=== PATIENT | male | born 1930 | race Caucasian/White ===

== ENCOUNTER 2018-11-27 08:34 | Inpatient (IN) | payer OTHER ==
[~2018-11-27] VITALS: Ht 172.7 cm; Wt 87.2 kg
[2018-11-27 08:39] VITALS: Ht 172.7 cm; Wt 87.2 kg
[2018-11-27] MEDS ORDERED: GOOD SENSE ASPI81 M3 PO (10:01)
[2018-11-27] MEDS ORDERED: ATENOLOL25 MG PO (10:01)
[2018-11-27] MEDS ORDERED: D3-50001 TAB PO (10:02)
[2018-11-27] MEDS ORDERED: ALLEGRA ALLERG180 M1 PO (10:02)
[2018-11-27] MEDS ORDERED: LOSARTAN POTASS25 M1 PO (10:02)
[2018-11-27] MEDS ORDERED: VITAMIN D32000 I2 (10:02)
[2018-11-27] MEDS ORDERED: GLUCOSAMINE CHO1 CA3 (10:02)
[2018-11-27 10:04] LABS: ALKALINE PHOSPHATASE 84 U/L (46-116); ALT/SGPT 23 U/L (16-63); AST/SGOT 49 U/L (15-37); BILIRUBIN TOTAL 0.26 mg/dL (0.20-1.00); CALCIUM 8.2 mg/dL (8.5-10.1); CARBON DIOXIDE 27.9 mmol/L (21-32); CHLORIDE SERUM 101 mmol/L (98-107); CREATININE SERUM 1.8 mg/dL (0.7-1.3); GLUCOSE SERUM 129 mg/dL (74-106); LIPASE 97 IU/L (73-393); POTASSIUM SERUM 4.7 mmol/L (3.5-5.1); SODIUM SERUM 135 mmol/L (136-145)
[2018-11-27 10:13] LABS: TOTAL PROTEIN, SERUM 5.7 g/dL (6.4-8.2)
[2018-11-27 10:15] LABS: RED CELL DISTRIBUTION WIDTH 13.8 % (11.5-14.5)
[2018-11-27 10:28] LABS: PLATELET COUNT 403 x10^3mcL (130-400)
[2018-11-27 11:08] LABS: ATYPICAL LYMPH 2 %; BAND NEUTROPHIL 1 % (0-10); BASOPHIL 0 % (0-2); MONOCYTE 2 % (0-7); SEGMENTED NEUTROPHILS 91 % (37-75)
[2018-11-27 11:09] LABS: PLATELET MORPHOLOGY PLATELETS INCREASED; rbc morphology (normal/abnorm) ABNORMAL (NORMAL)
[2018-11-27 14:38] LABS: MAGNESIUM 2.4 mg/dL (1.8-2.4); PHOSPHOROUS 3.5 mg/dL (2.5-4.9)
[2018-11-27 14:45] LABS: T3 TOTAL 0.52 ng/mL
[2018-11-27 14:50] VITALS: BP 107/78
[2018-11-27 14:54] LABS: FREE T4 1.1 ng/dL (0.76-1.46)
[2018-11-27 14:55] LABS: T4(THYROXINE) 4.6 ug/dL (4.7-13.3)
[2018-11-27 17:17] VITALS: BP 102/47
[2018-11-27 18:21] LABS: UA SPECIFIC GRAVITY 1.025 (1.005-1.035); microscopic required? YES; urine erythrocyte TRACE (NEGATIVE)
[2018-11-27 21:55] VITALS: BP 124/41
[2018-11-28 06:13] VITALS: BP 108/63
[2018-11-28 07:23] LABS: BASOPHIL % 0.1 % (0-2); PLATELET COUNT 303 x10^3mcL (130-400)
[2018-11-28 07:50] LABS: CALCIUM 7.9 mg/dL (8.5-10.1); CARBON DIOXIDE 25.8 mmol/L (21-32); CHLORIDE SERUM 107 mmol/L (98-107); CREATININE SERUM 1.4 mg/dL (0.7-1.3); GLUCOSE SERUM 100 mg/dL (74-106); POTASSIUM SERUM 4.5 mmol/L (3.5-5.1); SODIUM SERUM 141 mmol/L (136-145)
[2018-11-28 10:04] VITALS: BP 113/41
[2018-11-28 13:54] VITALS: BP 133/47
[2018-11-28 20:35] VITALS: BP 123/53
[2018-11-29 05:17] VITALS: BP 135/55
[2018-11-29 06:48] LABS: CALCIUM 8.3 mg/dL (8.5-10.1); CARBON DIOXIDE 23.1 mmol/L (21-32); CHLORIDE SERUM 108 mmol/L (98-107); CREATININE SERUM 1.2 mg/dL (0.7-1.3); GLUCOSE SERUM 121 mg/dL (74-106); POTASSIUM SERUM 3.9 mmol/L (3.5-5.1); SODIUM SERUM 139 mmol/L (136-145)
[2018-11-29 07:31] LABS: BASOPHIL % 0.4 % (0-2); PLATELET COUNT 313 x10^3mcL (130-400); RED CELL DISTRIBUTION WIDTH 13.9 % (11.5-14.5)
[2018-11-29 09:51] VITALS: BP 121/52
[2018-11-29 12:35] VITALS: BP 101/63
[2018-11-29 17:20] VITALS: BP 128/50
[2018-11-29 21:08] VITALS: BP 122/57
[2018-11-30 05:35] VITALS: BP 123/61
[2018-11-30 06:19] LABS: BASOPHIL % 0.4 % (0-2); PLATELET COUNT 310 x10^3mcL (130-400); RED CELL DISTRIBUTION WIDTH 14.1 % (11.5-14.5)
[2018-11-30 06:20] LABS: CALCIUM 8.2 mg/dL (8.5-10.1); CARBON DIOXIDE 24.1 mmol/L (21-32); CHLORIDE SERUM 107 mmol/L (98-107); CREATININE SERUM 1.2 mg/dL (0.7-1.3); GLUCOSE SERUM 119 mg/dL (74-106); MAGNESIUM 1.8 mg/dL (1.8-2.4); POTASSIUM SERUM 3.8 mmol/L (3.5-5.1); SODIUM SERUM 137 mmol/L (136-145)
[2018-11-30 09:39] VITALS: BP 136/62
[2018-11-30] MEDS ORDERED: PROTONIX20 MG PO (11:56)
[2018-11-30 13:29] VITALS: BP 111/81
[2018-11-30 14:43] VITALS: BP 111/81
== END 2018-11-30 16:20 | DRG 377 ==
LOC: ED 08:34 → DU 12:56
PROVIDERS: Emergency Medicine; Internal Medicine; ADMIT Family Medicine
PROC: 0DB58ZX Excision of Esophagus, Via Natural or Artificial Opening Endoscopic, Diagnostic (ICD-10-PCS; principal; 2018-11-29 09:30)
PROC: 0DB68ZX Excision of Stomach, Via Natural or Artificial Opening Endoscopic, Diagnostic (ICD-10-PCS; 2018-11-29 09:30)
DX: K92.1 Melena (principal); N17.0 Acute kidney failure with tubular necrosis; E43 Unspecified severe protein-calorie malnutrition; E87.1 Hypo-osmolality and hyponatremia; D62 Acute posthemorrhagic anemia; K22.70 Barrett's esophagus without dysplasia; K26.9 Duodenal ulcer, unspecified as acute or chronic, without hemorrhage or perforation; E11.65 Type 2 diabetes mellitus with hyperglycemia; N45.1 Epididymitis; E86.0 Dehydration; H54.61 Unqualified visual loss, right eye, normal vision left eye; I10 Essential (primary) hypertension; J45.909 Unspecified asthma, uncomplicated; Z86.12 Personal history of poliomyelitis
CPT/HCPCS: 43235; 82962; 84439; C9113; J1200; J1610; J1956; J2250; J2310; J3010; J3490; J7030; Q0092

== ENCOUNTER 2019-09-18 08:38 | Inpatient (IN) | payer OTHER ==
[~2019-09-18] VITALS: Ht 172.7 cm; Wt 33.2 kg
[~2019-09-18 08:38] MED LIST: ALLEGRA ALLERG180 M1 PO; ATENOLOL25 MG PO; D3-50001 TAB PO; GLUCOSAMINE CHO1 CA3; GOOD SENSE ASPI81 M3 PO; LOSARTAN POTASS25 M1 PO; PROTONIX20 MG PO; VITAMIN D32000 I2
--- NOTE | 2019-09-18 08:42 | NUR ---
PT BIB RESCUE # 66/[facility] # 117 STRETCHER FROM [facility] FOR DECREASED BP,decreased appetite x 3 days.awaits er md evaluations/assesmments.aao person at this time.nad.
--- NOTE | 2019-09-18 08:46 | NUR ---
ER MD AT BEDSIDE FOR EVALUATIONS/assessments.aao to person at this time but answers some questions .awaitsc reevaluations,tanmay.
--- NOTE | 2019-09-18 08:55 | NUR ---
LAB PGHLEBOTOMIST AT BEDSIDE FOR BLOOD DRAW.AWAITS REEVALUATIONS.MONITORS ON.
--- NOTE | 2019-09-18 09:01 | NUR ---
TO CT TEST AREA VIA rikc jay nad.awaits reevaluations,test results.
--- NOTE | 2019-09-18 09:04 | NUR ---
PER EMS PERSONNEL EARLIER F.S./BLOOD STICK OF 135,ER MADE AWARE.
[2019-09-18] MEDS ORDERED: ASPIR 8181 MG (09:09)
[2019-09-18] MEDS ORDERED: DOK100 M3 (09:10)
[2019-09-18] MEDS ORDERED: LIPI20 (09:10)
[2019-09-18] MEDS ORDERED: LOSARTAN POTASS50 M1 (09:11)
[2019-09-18] MEDS ORDERED: ONDANSETRON4 M3 (09:12)
[2019-09-18] MEDS ORDERED: GOOD NEIGH1200 MG/15 (09:12)
--- NOTE | 2019-09-18 09:16 | NUR ---
PT BACK FROM CT TEST area,pcxr in progress bedside.pt tolerated procedures with no incidents.asleep.nad.awaits test results,reevaluations.monitors on.
[2019-09-18 09:26] LABS: PLATELET COUNT 436 x10^3mcL (130-400); RED CELL DISTRIBUTION WIDTH 15.6 % (11.5-14.5)
[2019-09-18 09:30] LABS: ALKALINE PHOSPHATASE 204 U/L (46-116); ALT/SGPT 30 U/L (16-63); AST/SGOT 46 U/L (15-37); BILIRUBIN TOTAL 0.41 mg/dL (0.20-1.00); CALCIUM 8.2 mg/dL (8.5-10.1); CARBON DIOXIDE 18.9 mmol/L (21-32); CHLORIDE SERUM 101 mmol/L (98-107); GLUCOSE SERUM 145 mg/dL (74-106); POTASSIUM SERUM 4.9 mmol/L (3.5-5.1); SODIUM SERUM 135 mmol/L (136-145)
[2019-09-18 09:43] LABS: ALBUMIN 1.7 g/dL (3.4-5.0); CREATININE SERUM 4.3 mg/dL (0.7-1.3); TOTAL PROTEIN, SERUM 5.8 g/dL (6.4-8.2)
[2019-09-18 09:47] LABS: BAND NEUTROPHIL 0 % (0-10); BASOPHIL 0 % (0-2); MONOCYTE 4 % (0-7); SEGMENTED NEUTROPHILS 93 % (37-75)
[2019-09-18 09:48] LABS: PLATELET MORPHOLOGY PLATELETS INCREASED; rbc morphology (normal/abnorm) ABNORMAL (NORMAL)
--- NOTE | 2019-09-18 09:48 | NUR ---
RESTING ASLEEP AT TIMES,VS shown.awaits er md reevaluations.pt tolerated procedures with no incidents.
--- NOTE | 2019-09-18 10:00 | NUR ---
indwelling allen catheter is inserted,urine specimen sent to lab.prt tolerated procedures with no incidents.awaits test results,er reevaluations.nad.monitors on.
[2019-09-18 10:46] LABS: UA SPECIFIC GRAVITY 1.025 (1.005-1.035); microscopic required? YES; urine erythrocyte 3+ (NEGATIVE)
--- NOTE | 2019-09-18 10:47 | NUR ---
ASLEEP AT TIMES,NAD.MONITORS on.awaits reevaluations.
--- NOTE | 2019-09-18 11:06 | NUR ---
AT ABOUT 1050 ADULT SON PATRICIA CALLED FROM [facility] FOR STATUS OF PT.pt gave me permission to talk to his son,then son wanted to talk with pt,portable phone is given.patricia states he has legal conservatorship on pt and also left his contact number with ada permission, [phone].
--- NOTE | 2019-09-18 12:22 | NUR ---
er at bedside for reevaluations.v.o. to continue on ns.awaits bed assignment,reevaluations.awake alert nad.
--- NOTE | 2019-09-18 12:33 | NUR ---
IVF OF NS # 4 LITER BAG WILL BE INFUSING ON TRANSPORT TO ICU.
--- NOTE | 2019-09-18 12:33 | NUR ---
PT ENDORSED TO/ACCEPTED BY [facility] LAW[facility].AWAITS TRANSPORT SERVICES,REEVALUATIONS.
--- NOTE | 2019-09-18 14:33 | NUR ---
1250: PT ARRIVED TO THE UNIT VIA STRETCHER FROM ER. PT IS AWAKE BUT CONFUSION, FOLLOWS COMMANDS. NOTED TO HAVE BRUISING ON BILATERAL ARMS. O2-3L NC. VITALS: 97.8, 81, 16, 78/38(56), 100%. INFORMED PHYSICIAN, OBTAIN NEW ORDERS. BILATERAL LUNGS ARE CLEAR AND DIMINISHED. DANIEL NOTED. URINE OUTPUT IS 100ML TEA COLOR WITH SEDIMENT NOTED. WILL CONTINUE TO MONITOR STATUS AND STABLIZE PATIENT.
--- NOTE | 2019-09-18 15:20 | NUR ---
CENTRAL LINE TIME OUT COMPLETED AT THIS TIME WITH DR. ABDUL, DR. MANSFIELD AND [employer] MARIO. ALL IN AGREEMENT. PT MEDICATED WITH ATIVAN 1MG IVP AND DILAUDID 1 MG IVP PRIOR. CONTINUES ON LEVO DRIP AT 18MCG/MIN. WILL CONT TO MONITOR
[2019-09-18 15:24] VITALS: BP 78/38
--- NOTE | 2019-09-18 16:05 | NUR ---
RIGHT IJ TL CVC INSERTION COMPLETED BY DR. ABDUL. PT TOLERATED PROCEDURE WELL, WILL CONTINUE TO MONITOR AND AWAIT OK TO USE LINE FOLLOWING XRAY.
--- NOTE | 2019-09-18 16:40 | NUR ---
PT WITH ONLY ONE PERIPHERIAL ACCESS DURING SCHEDULED VANCO DOSE AT 1500. PT HAS LEVO INFUSING DURING THAT TIME PT HYPOTENSIVE. RIJ CENTRAL LINE PLACED AND HAS NOW BEEN VERIFIED. PHARMACY CONTACTED TO CHANGE VANCO TIME TO 1800 MERREM IS DUE AT 1600. PRIMARY RN MADE AWARE.
[2019-09-18 17:02] LABS: CALCIUM 6.7 mg/dL (8.5-10.1); CARBON DIOXIDE 19.3 mmol/L (21-32); CHLORIDE SERUM 107 mmol/L (98-107); CREATININE SERUM 3.2 mg/dL (0.7-1.3); GLUCOSE SERUM 154 mg/dL (74-106); MAGNESIUM 1.8 mg/dL (1.8-2.4); PHOSPHOROUS 3.9 mg/dL (2.5-4.9); SODIUM SERUM 139 mmol/L (136-145)
[2019-09-18 17:13] LABS: PLATELET COUNT 409 x10^3mcL (130-400); RED CELL DISTRIBUTION WIDTH 15.5 % (11.5-14.5)
[2019-09-18 17:39] LABS: BAND NEUTROPHIL 2 % (0-10); MONOCYTE 7 % (0-7); SEGMENTED NEUTROPHILS 87 % (37-75)
[2019-09-18 17:42] LABS: PLATELET MORPHOLOGY FEW PLT CLUMPS SEEN; acanthocyte (spur cell) 2+; ovalocyte/elliptocyte 1+; rbc morphology (normal/abnorm) ABNORMAL (NORMAL)
[2019-09-18 20:00] VITALS: BP 105/45
[2019-09-18 23:10] VITALS: BP 105/45
[2019-09-19] VITALS: BP 91/44
[2019-09-19 04:00] VITALS: BP 101/47
[2019-09-19 05:14] LABS: CALCIUM 6.8 mg/dL (8.5-10.1); CARBON DIOXIDE 20.4 mmol/L (21-32); CHLORIDE SERUM 108 mmol/L (98-107); CREATININE SERUM 2.7 mg/dL (0.7-1.3); GLUCOSE SERUM 154 mg/dL (74-106); POTASSIUM SERUM 3.9 mmol/L (3.5-5.1); SODIUM SERUM 138 mmol/L (136-145)
[2019-09-19 05:16] LABS: MAGNESIUM 1.7 mg/dL (1.8-2.4)
[2019-09-19 05:22] LABS: BASOPHIL % 0.2 % (0-2); PLATELET COUNT 358 x10^3mcL (130-400)
[2019-09-19 05:37] LABS: rbc morphology (normal/abnorm) ABNORMAL (NORMAL)
[2019-09-19 08:00] VITALS: BP 93/41
--- NOTE | 2019-09-19 09:31 | NUR ---
LEVOPHED GTT TITRATED TO 14 MCG/MIN FROM 12 MCG/MIN FOR BP 88/38. WILL CONTINUE TO MONITOR.
--- NOTE | 2019-09-19 09:50 | NUR ---
0800 PT IS RESTING QUIETLY IN BED. NO ACUTE DISTRESS NOTED. NO PAIN STATED. PT IS ALERT AND ORIENTED TO ONLY PERSON. BILATERAL BREATH SOUNDS ARE CLEAR. O2 2LNC. BP IS CURRENTLY LOW, REQUIRING 10MCG/MIN OF LEVOPHED. NS@100ML/HR. DANIEL DRAINING TO THE BEDSIDE. WILL CONTINUE TO MONITOR.
--- NOTE | 2019-09-19 10:10 | NUR ---
DR. ABDUL, DR. BARAJAS, DR. HANLEY AT BEDSIDE. QUESTIONS ANSWERED, UPDATES PROVIDED. PLAN OF CARE FOR NOW IS TO TRANSFUSE BLOOD (CONSENT AQUIRED VIA SON OF PT VIA TELEPHONE) AND TO CONTINUE LAB MONITORING. WILL CARRY OUT BLOOD ADMINISTRATION.
--- NOTE | 2019-09-19 10:11 | NUR ---
DR. ABDUL IN UNIT AND SPOKE WITH PT'S SON RONA VIA TELEPHONE IN REGARDS TO NEED FOR BLOOD TRANSFUSION, RISK AND BENEFITS EXPLAINED. CONSENT OBTAINED AND WITNESSED BY MYSELF VIA TELEPHONE. DR. HANLEY ALSO IN UNIT AND STATED HE WOULD LIKE PT TO RECIEVE AN ADDITIONAL UNIT OF PRBC FOR A TOTAL OF 2 UNITS.
--- NOTE | 2019-09-19 10:24 | NUR ---
PATIENT'S SON JULIET TELEPHONED THE UNIT TO MAKE SURE THAT WE RECEIVED CONFIRMATION OF CONSENT FOR BLOOD TRANSFUSION. EXPLAINED TO PATIENT'S SON THAT WE DID RECEIVE CONFIRMATION AND WILL BE TRANSFUSING 2 UNITS PRBC'S. JULIET IN AGREEMENT OF PLAN. WILL ENDORSE TO PRIMARY RN.
--- NOTE | 2019-09-19 10:30 | NUR ---
1 UNIT PRBC'S CHECKED AT BEDSIDE WITH SECOND RN. PRE ADMIN VS: T 97.3, HR 78, BP 94/45, RR 21, XPO2 99% ON RA. WILL CONTINUE TO MONITOR.
[2019-09-19 12:00] VITALS: BP 95/45
--- NOTE | 2019-09-19 12:12 | NUR ---
ECHO PENDING. UNABLE TO OBTAIN IMAGES DUE TO PATIENTS CURRENT CONDITION. WILL TRY AGAIN ANOTHER TIME.
[2019-09-19 15:00] VITALS: BP 108/53
--- NOTE | 2019-09-19 16:45 | NUR ---
PATIENT WITH BRADYCARDIA IN 40'S. DR ABDUL MADE AWARE. HR AT THIS TIME 68.
--- NOTE | 2019-09-19 17:37 | NUR ---
PATIENT'S RICHI AND STEP DAUGHTER NILES ON UNIT TO VISIT WITH PATIENT. UPDATES PROVIDED BY NURSING.
--- NOTE | 2019-09-19 17:38 | NUR ---
GINO SHAPE HAND JUST CALLED AND SAID THAT THE PRIMARY CARE PHYSICIAN OF THE PT WANTS OUR DOCTOR TO CALL THE PT'S SON, RONA, AND DISCUSS HOSPICE CARE WITH HIM. WILL UPDATE DR. ABDUL.
--- NOTE | 2019-09-19 17:41 | NUR ---
DR. ABDUL MADE AWARE OF PREVIOUS NOTE VIA TELEPHONE.
[2019-09-19 20:00] VITALS: BP 101/56
[2019-09-20] VITALS (7 sets, daily range): BP systolic 97–143; BP diastolic 44–60
[2019-09-20 04:46] LABS: BASOPHIL % 0.1 % (0-2); PLATELET COUNT 240 x10^3mcL (130-400)
[2019-09-20 04:57] LABS: CALCIUM 7.1 mg/dL (8.5-10.1); CARBON DIOXIDE 21.3 mmol/L (21-32); CHLORIDE SERUM 111 mmol/L (98-107); CREATININE SERUM 2.1 mg/dL (0.7-1.3); GLUCOSE SERUM 106 mg/dL (74-106); MAGNESIUM 1.7 mg/dL (1.8-2.4); PHOSPHOROUS 2.7 mg/dL (2.5-4.9); POTASSIUM SERUM 3.6 mmol/L (3.5-5.1); SODIUM SERUM 142 mmol/L (136-145)
--- NOTE | 2019-09-20 07:42 | NUR ---
ELLEN RT AT BEDSIDE ADMINISTERING BREATHING TX.
--- NOTE | 2019-09-20 07:55 | NUR ---
PATIENT'S SON JULIET TELEPHONED THE UNIT ASKING TO SPEAK WITH DR ABDUL. EXPLAINED TO JULIET THAT DR ABDUL IS NOT ON THE UNIT AT THIS TIME. JULIET EXPLAINED TO ME THAT HE WILL ONLY BE AVAILABLE FOR APPROXIMATELY 5-[address] ABDUL NOTIFIED AND STATED HE WILL CALL HIM RIGHT BACK.
--- NOTE | 2019-09-20 12:20 | NUR ---
DR CARTY AT BEDSIDE TO ASSESS PATIENT. UPDATES PROVIDED BY NURSING. PATIENT STABLE TO TRANSFER TO FLOOR.
--- NOTE | 2019-09-20 12:33 | NUR ---
DR. CARTY AT BEDSIDE ASSESSING PT. NURSING UPDATES. NO NEW ORDERS AT THIS TIME.
--- NOTE | 2019-09-20 12:40 | NUR ---
DR SALVADOR AT BEDSIDE TO ASSESS PATIENT. UPDATES PROVIDED BY NURSING. DR SALVADOR PERFORMED A RECTAL EXAM. PATIENT TOLERATED WITH NO S/S OF DISTRESS NOTED. PER DR SALVADOR, NO EGD/COLONOSCOPY AT THIS TIME.
--- NOTE | 2019-09-20 14:06 | NUR ---
Initial Nutrition Assessment: IC09/A KARLO MONTEJO IA HR Dx: sepsis PMHx: COPD, HTN, Anemia, CKD 3, Hyperlipidemia, Dementia PSHx: not documented Labs: BUN 69H, CREAT 2.1H, ALB 1.7L, MG 1.7L, WBC 11.3H Meds: levophed, milk of magnesia, NS, tylenol Diet: cardiac, chopped fine PO intake since admission: (09/19) dinner 100%, lunch 0%, breakfast 25% Ht: 172.72 cm (68") Wt: 33 kg (73#) BMI: 11.1 kg/m2 (underweight) Bed scale: IBW: 154# (70 kg) %IBW: 47 UBW: 73# Age: 89/M Food Allergies: NKFA Skin: buising to bilateral arms, skin tear L buttock Nikolas: 13 Edema: none GI: noted blood in stools Last BM: 09/19 Per H&P, Pt is a 89 year old male with PMH of COPD, HTN, Anemia, CKD 3, Hyperlipidemia, Dementia, was BIBA from [facility] as the patient has been altered with decreased appetite for the last 3 days. Patient moved to [place] [address] Note (09/20): Per devulcanizer charger, patient has dementia and is not alert and oriented. Per RN patient had 100% dinner last night and has good appetite. Patient is CKD stage [address] Spann to change diet from cardiac to renal. FNS received consult for 'requesting nutrition suggestion' on 09/19. Problem with: N/V/D/C: none per RN Problems with: Chewing: Swallowing: yes, on MS chopped diet Current appetite: good Recent wt change: unable to access %wt change: unable to access Vitamin/Supplement use: unbale to access Special diet at home: unbale to access Physical activity: unbale to access Nutrition education given: not possible at this time Food-drug interactions: none Education given: n/a Estimated Nutritional Needs Based on current body weight (33 kg) Energy: 7204-5901 kcal/day (35-40 kcal/kg for malnutrition) Protein: 40- 49 g/day (1.2-1.5 g/kg for malnutrition) Fluid: 6014-4519 mL/day (1 mL/kcal) Nutrition Diagnosis: 1. Malnutrition related to chronic poor PO as evidenced by BMI 11.1 kg/m2 Intervention 1. Recommend Renal diet. 2. Recommend Nepro BID. Discussed recommendations with Dr. Flores. Monitor/Evaluate Goal: PO intake at least 75% of estimated needs Monitor: PO intake, Labs, GI function F/U in 3-5 days as moderate risk 09/23-5
--- NOTE | 2019-09-20 14:07 | NUR ---
1. Recommend Renal diet. 2. Recommend Nepro BID. Discussed recommendations with Dr. Flores.
--- NOTE | 2019-09-20 14:38 | NUR ---
ECHO COMPLETED 09/19
--- NOTE | 2019-09-20 15:36 | NUR ---
PATIENT TO BE TRANSFERRED TO [facility]. PATIENT TRANSFERRED WITH ALL PATIENT BELONGINGS. REPORT CALLED BY [facility] LAW[facility]. PATIENT'S SON JULIET AND INFORMED HIM OF PATIENT TRANSFER.
--- NOTE | 2019-09-20 16:05 | NUR ---
pt transferred from ICU at 1605 via in stable condition. report received from Shea AlexRN at 1545 pt is awake, alert, oriented to place, person but not year. pt has allen to BSd with yellow urine noted with sediments. pt noted to have a mepilex dressing C/D/I to sacral area. pt also has generalized bruises noted to arms.pt also has a Rt. IJ TLC, no fluids infusing. v/s done @1625, see chart. new stat lock applied to allen @ 1625 too. pt on tele, box #5, SR w/PAC's & BBB rate 94 oer Olivia @ 1632. pt has been oriented to and surroundings, call light in reach, bed in lowest position, sitter at bedside, no acute distress, will con't to monitor
--- NOTE | 2019-09-20 19:39 | NUR ---
PT ALERT, COOPERATING WITH STAFF. ABLE TO STATE NAME, AND HAVE CONVERSATION WITH STAFF. DENIES PAIN/SOB. FOLLOWS SIMPLE COMMANDS. RIGHT TRIPLE LUMEN IJ INTACT. TURNED AND REPOSITIONED. SITTER AT BEDSIDE. BED IN LOW POSITION WITH CALL LIGHT IN REACH. BED ALARM ON.
--- NOTE | 2019-09-20 22:30 | NUR ---
CALLED IN ROOM BY SITTER. PT PULLED OUT RIGHT IJ. NO CREPITUS NOR HEMATOMA NOTICED. CATHETER TIP INTACT. GAUZE DRESSING APPLIED. WILL START PERIPHERAL IV.
--- NOTE | 2019-09-20 23:30 | NUR ---
DR. CASTILLO INFORMED THAT PT PULLED OUT IJ AND NEW PERIPHERAL IV STARTED. NO NEW ORDERS RECEIVED.
[2019-09-21] VITALS (7 sets, daily range): BP systolic 90–110; BP diastolic 46–59
--- NOTE | 2019-09-21 00:37 | NUR ---
NO DVT PROPHYLAXIS ORDERED. DR. CASTILLO ASKED TO ASSESS. BILATERAL SCD ORDERED AND PLACED ON PT.
--- NOTE | 2019-09-21 02:56 | NUR ---
CALLED IN ROOM BY SITTER. PT PULLED OUT PERIPHERAL IV. CATHETER TIP INTACT.
--- NOTE | 2019-09-21 06:20 | NUR ---
NSR ON MONITOR. SBP 95. ROUNDING UPDATED. NO NEW ORDERS. ALERT AND ORIENTED TO NAME, . DENIES PAIN/SOB. DRESSING INTACT TO SACRAL AREA TURNED AND REPSITIONED EVERY 2 HOURS. BED IN LOW POSITION WITH CALL LIGHT IN REACH. BED ALARM ON AND SITTER AT BEDSIDE. REPORT GIVEN TO RENNY JONES.
[2019-09-21 06:41] LABS: CALCIUM 7.8 mg/dL (8.5-10.1); CARBON DIOXIDE 20.4 mmol/L (21-32); CHLORIDE SERUM 111 mmol/L (98-107); CREATININE SERUM 1.6 mg/dL (0.7-1.3); GLUCOSE SERUM 102 mg/dL (74-106); MAGNESIUM 1.7 mg/dL (1.8-2.4); PHOSPHOROUS 2.3 mg/dL (2.5-4.9); POTASSIUM SERUM 3.6 mmol/L (3.5-5.1); SODIUM SERUM 143 mmol/L (136-145)
[2019-09-21 06:42] LABS: PLATELET COUNT 238 x10^3mcL (130-400)
--- NOTE | 2019-09-21 07:34 | NUR ---
RECEIVED HAND OFF REPORT FROM A NIGHT NURSE. PATIENT IS AWAKE TO VOICE AT THIS TIME. ORIENTED TO PERSON ONLY. REPORTED BASELINE FOR PATIENT. DANIEL IN PLACE, RECENTLY DRAINED. IV TO LEFT LOWER FOREARM, WRAPPED WITH COBAND, INSTRUCTED PATIENT TO NO PULL ON IIV. SALINE LCOKED AT THIS TIME. DRESSINGS TO RIGHT NECK AND RIGHT UPPER ARM FROM PREVIOUS REMOVAL OF LINES. SITTER AT BEDSIDE FOR SAFETY. CALL LIGHT WITHIN REACH
--- NOTE | 2019-09-21 08:05 | NUR ---
SHONNA ANDRADE SAT PATIENT UP AND HELPED TO EAT. RT AT BEDSIDE FOR BREATHING TREATMENT.
--- NOTE | 2019-09-21 09:00 | NUR ---
ADMINISTERED LIPITOR PO CRUSHED IN APPLESAUCE. RESIDENT ORDERED ONE TIME BOLUS 500ML NS. DUE TO LOW BLOOD PRESSURE. STARTED BOLUS, SHONNA ANDRADE TO WATCH PATIENT TO MAKE SURE HE DOES NOT PULL OUT IV.
[2019-09-21 09:11] LABS: RED CELL DISTRIBUTION WIDTH 16.6 % (11.5-14.5)
--- NOTE | 2019-09-21 10:10 | NUR ---
500ML NS BLOUS FINISHED. BLOOD BRESSURE IMPROVED, 105/56 MAP 71. WILL UPDATE RESIDENT WHEN ROUNDING
--- NOTE | 2019-09-21 11:45 | NUR ---
DR BARAJAS AND TEAM ROUNDED ON PATIENT. INFOMRED OF BLOOD PRESSURE RESPONSE TO BOLUS, IMPROVED. PATIENT NOT TAKING ANY MEDICATIONS TO LOWER BLOOD PRESSURE. CURRENT PLAN TO CONTINUE VANCO TREATMENT PER ID DOCTOR. MONITOR PATIENT BLOOD PRESSURE. NO OTHER NEW ORDERS AT THIS TIME
--- NOTE | 2019-09-21 14:34 | NUR ---
PHYSICAL THERAPIST HERE ASKING IF PATIENT NEEDS TO BE EVALUATED. RECEIVED ORDER FROM DR HERRERA. RECHECKED PATIENT BLOOD PRESSURE. DUE TO WEAKNESS ON RIGHT ARM BLOOD PRESSURE WAS TAKEN ON LEFT ARM NOW 110/59. 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
[2019-09-21 16:19] LABS: BAND NEUTROPHIL 0 % (0-10); BASOPHIL 0 % (0-2); MONOCYTE 1 % (0-7); SEGMENTED NEUTROPHILS 87 % (37-75)
[2019-09-21 16:20] LABS: PLATELET MORPHOLOGY PLATELETS INCREASED
[2019-09-21 16:21] LABS: rbc morphology (normal/abnorm) ABNORMAL (NORMAL)
--- NOTE | 2019-09-21 16:31 | NUR ---
PATIENT WORKED WITH PT. STOOD AND SIDE OF BED AND SIDE STEPPED WITH PHYSICAL THERAPIST. FLUIDS STARTED NS AT 40MLS/HR PER DR HERRERA ORDER. WILL CONTINUE TO MONITOR PATINET BLOOD PRESSURE. SITTER IN ROOM WITH PATIENT
--- NOTE | 2019-09-21 19:19 | NUR ---
GAVE REPORT TO MARYJANE LAWSON, ALL QUESTIONS ANSWERED. CARE ENDORSED
--- NOTE | 2019-09-21 19:20 | NUR ---
RECEIVED PT WATCHING TV AT THIS TIME.ALERT TO HIS NAME AND BIRTHDATE ONLY,CONFUSED WITH CURRENT TIME AND DATE.BLIND ON R EYE.BREATHIGN EASY AND NON-LABORED.TOLERATING ROOMAIR @ 96% O2 SAT.LATEST BP 106/46 MMHG,HR 71.DENIES ANY PAIN.F/C TO YELLOW COLORED URINE.EDEMA TO BUE WITH SOME ECCYMOSIS NOTED.BLE EDEMA ALSO NOTED.ELEVATED ON A PILLOW.NURSE AT BEDSIDE TO ASSIST WITH ADLS.WILL CONTINUE TO MONITOR.
--- NOTE | 2019-09-22 04:51 | NUR ---
PT SLEPT WELL.BREATHING EASY AND NON-LABORED.NO COUGHING/CONGESTION NOTED.NURSE AT BEDSIDE TO ASSIST WITH ADLS.TURNED AND REPOSITIONED.IVF INFUSING WELL.EMPTIED 400ML YELLOW COLORED URINE.ALL NEEDS MET.WILL CONTINUE TO MONITOR.
[2019-09-22 05:33] VITALS: BP 119/64
[2019-09-22 06:52] LABS: CALCIUM 7.7 mg/dL (8.5-10.1); CARBON DIOXIDE 23.4 mmol/L (21-32); CHLORIDE SERUM 113 mmol/L (98-107); CREATININE SERUM 1.3 mg/dL (0.7-1.3); GLUCOSE SERUM 100 mg/dL (74-106); MAGNESIUM 1.6 mg/dL (1.8-2.4); PHOSPHOROUS 2.3 mg/dL (2.5-4.9); POTASSIUM SERUM 3.5 mmol/L (3.5-5.1); SODIUM SERUM 145 mmol/L (136-145)
[2019-09-22 06:55] LABS: BASOPHIL % 0.4 % (0-2); PLATELET COUNT 255 x10^3mcL (130-400)
[2019-09-22 07:11] LABS: RED CELL DISTRIBUTION WIDTH 15.1 % (11.5-14.5)
--- NOTE | 2019-09-22 07:23 | NUR ---
RECEIVED HAND OFF REPORT FROM RENNY WESLEY. PATIENT RESTING WITH EYES CLOSED AT THIS TIME. BREATHING REGULAR AND UNLABORED. NO INDICATION OF PAIN OR DISCOMFORT. IV TO LEFT FOREARM INTACT AND INFUSING. DANIEL IN PLACE DRAINING CLEAR YELLOW URINE. SITTER IN ROOM. CALL LIGHT WITHIN REACH
--- NOTE | 2019-09-22 08:58 | NUR ---
ADMINSITERED MEDICATIONS PER JAN. JAGDEEP MAGNETIC TESTING TECHNICIAN ROUNDED ON PATIENT AND STATED THAT PATIENT WAS ACCEPTED AT [facility]. CHARGE NURSE JOSIAS TO CALL [facility] AND SEND OVER AUTHORIZATION NUMBER. PLANNING D/C TODAY. WILL CALL [facility] TO RECEIVED CONSENT TO TRANSPORT.
[2019-09-22 09:26] VITALS: BP 112/64
--- NOTE | 2019-09-22 09:30 | NUR ---
CALLED AND SPOKE TO MIN ADMISSIONS AT [facility] AND PROVIDED HER SNF AUTH#[id number] GIVEN BY [facility] INSURANCE. MIN SAYS PT IS GOING TO RM: 101 BED 3, ACCEPTING MD:. [facility] TRANSPORT ARRANGE PER [facility] INS AUTH AND PATTERN CHANGER AND REPAIRER TIME IS AT 1200. MARCELLA RN ASSIGNED TO THIS PT MADE AWARE OF ABOVE. MARCELLA WILL NOTIFY SON OF TRANSFER TO [facility]. UZIEL(ATTENDING N.P.) AWARE OF ABOVE.
[2019-09-22] MEDS ORDERED: BACTRIM DS1 TAB PO (09:44)
[2019-09-22] MEDS ORDERED: LIPI20 PO (09:44)
[2019-09-22] MEDS ORDERED: VANCO 1 GR1 GM/250 M IV (10:39)
--- NOTE | 2019-09-22 11:23 | NUR ---
CALLED PATIENT SONRONA AND UPDATED ON PLAN OF CARE. RECEIVED CONSENT TO TRANSPORT PATIENT TO REHAB FACILITY [facility]. CALLED REPORT TO CATERINA CHAVEZ AT [facility]. [facility] SCHEDULED TO TRANSPORT PATIENT AT 1200.
[2019-09-22 11:26] VITALS: BP 112/64
--- NOTE | 2019-09-22 12:35 | NUR ---
[facility] HERE TO TRANSPORT PATIENT. NEW IV STARTED TO LEFT WRIST. 24 G. GAVE PACKET AND BELONGINGS TO SUPERVISOR KENNEL. ADDRESSED QUESTIONS. TELE 5 REMOVED FROM PATIENT. TAKEN TO [facility]
--- NOTE | 2019-09-22 15:36 | NUR ---
PHYSICAL THERAPY DAILY NOTES CO-SIGN All documentation done by the Print Developer for 09/22/19 has been reviewed. I agree with the documentation. Reviewed/Co-Signed by: Chelsi Vasquez PT Documentation Done by:CONSTANTINO VELIZ FREELANCE DESIGNER POC REVIEWED W/ FREELANCE DESIGNER; WILL BENEFIT W/ P.T. POST ACUTE STAY.
[2019-09-24 07:06] LABS: CK-BB 0 % (0); CK-MB 0 % (0-3); CK-MM 100 % (97-100); MACRO TYPE 1 0 % (Not Observed); MACRO TYPE 2 0 % (Not Observed)
== END 2019-09-22 12:40 | DRG 871 ==
LOC: ED 08:38 → IC 11:38 → DU 09-20 16:04
PROVIDERS: Emergency Medicine; ADMIT Internal Medicine
DX: A41.9 Sepsis, unspecified organism (principal); N17.0 Acute kidney failure with tubular necrosis; G93.41 Metabolic encephalopathy; J96.01 Acute respiratory failure with hypoxia; E43 Unspecified severe protein-calorie malnutrition; N39.0 Urinary tract infection, site not specified; E87.1 Hypo-osmolality and hyponatremia; E87.2 Acidosis; B96.89 Other specified bacterial agents as the cause of diseases classified elsewhere; E83.51 Hypocalcemia; I12.9 Hypertensive chronic kidney disease with stage 1 through stage 4 chronic kidney disease, or unspecified chronic kidney disease; N18.3 Chronic kidney disease, stage 3 (moderate); D63.1 Anemia in chronic kidney disease; E78.5 Hyperlipidemia, unspecified; J44.9 Chronic obstructive pulmonary disease, unspecified; F03.90 Unspecified dementia, unspecified severity, without behavioral disturbance, psychotic disturbance, mood disturbance, and anxiety; N20.0 Calculus of kidney; N28.1 Cyst of kidney, acquired
CPT/HCPCS: 36556; 36600; 97530-GP; C9113; G0378; J0456; J1170; J1642; J1956; J2060; J2185; J3370; J3475; J3490; J7030; J7040; J7050; J7620; P9016; Q0092; Q0163